=== PATIENT | female | born 1965 | race Caucasian/White ===

== ENCOUNTER 2018-09-29 08:07 | Day surgery (SDC) | payer BC, OTHER ==
[~2018-09-29] VITALS: Ht 160 cm; Wt 51.7 kg
[~2018-09-29 08:07] MED LIST: BENADRYL PO; BETA15OI2; LEVO112T57; LORATADINE PO; METAMUCIL; NASO17 NS; OMEP40CA3; RANI-445
[2018-09-29] MEDS ORDERED: LIDOCAINE 4% SOLUTION 50 ML BTL ONE (09:16)
[2018-09-29 09:21] VITALS: Ht 160 cm; Wt 51.7 kg
[2018-09-29 09:24] VITALS: BP 126/65; PULSE 70; RESP 18
[2018-09-29] MEDS ORDERED: MIDAZOLAM 1 MG/ML 2 ML INJ ONE ×2 (10:07)
[2018-09-29] MEDS ORDERED: FENTAnyl 50 MCG/ML VIAL ONE (10:07)
[2018-09-29 10:48] VITALS: BP 103/64; PULSE 60; RESP 20
== END 2018-09-29 14:08 | disposition home or self-care (01) ==
LOC: GIL 08:07
PROVIDERS: ATTEND Internal Medicine Gastroenterology
DX: Z12.11 Encounter for screening for malignant neoplasm of colon (principal); K64.1 Second degree hemorrhoids; K29.50 Unspecified chronic gastritis without bleeding; K20.8 Other esophagitis
CPT/HCPCS: 43239; 45378; 88305; 88312; J2250; J3010; Z7610